=== PATIENT | female | born 1990 | race Caucasian/White ===

== ENCOUNTER 2020-06-29 14:13 | Outpatient (CLI) | payer OTHER ==
[2020-06-29 18:20] LABS: BASOPHILS # (AUTO) 0.1 10^3/uL (0.0-0.1); BASOPHILS % (AUTO) 0.9 %; EOSINOPHILS # (AUTO) 0.2 10^3/uL (0.0-0.7); EOSINOPHILS % (AUTO) 2.3 %; HGB - HEMOGLOBIN 12.9 g/dL (12.0-16.0); LYMPHOCYTES # (AUTO) 3.1 10^3/uL (1.5-3.5); LYMPHOCYTES % (AUTO) 32.6 %; MEAN CORPUSCULAR HEMOGLOBIN 28.5 pg (27.0-31.0); MEAN CORPUSCULAR HGB CONC 32.4 g/dL (32.0-36.0); MEAN CORPUSCULAR VOLUME 87.9 fL (81.0-99.0); MEAN PLATELET VOLUME 10.5 fL (7.9-10.8); MONOCYTES # (AUTO) 0.7 10^3/uL (0.0-1.0); MONOCYTES % (AUTO) 7.4 %; NEUTROPHILS # (AUTO) 5.3 10^3/uL (1.5-6.6); NEUTROPHILS % (AUTO) 56.4 %; PLT - PLATELET COUNT 281 10^3/uL (130-450); RED BLOOD COUNT 4.53 10^6/uL (4.20-5.40); RED CELL DISTRIBUTION WIDTH 12.7 % (12.0-15.0); WHITE BLOOD COUNT 9.4 x10^3/uL (4.8-10.8)
[2020-06-29 18:42] LABS: ALBUMIN 4.5 g/dL (3.2-5.5); ALBUMIN/GLOBULIN RATIO 1.6 (1.0-2.2); BILIRUBIN,TOTAL 0.6 mg/dL (0.2-1.0); CALCIUM 8.9 mg/dL (8.5-10.3); CREATININE 0.8 mg/dL (0.4-1.0); TOTAL PROTEIN 7.4 g/dL (6.7-8.2)
== END 2020-06-29 23:59 | disposition home or self-care (01) ==
LOC: LAB.WCP 14:13
PROVIDERS: ATTEND Physician Assistant
DX: Z00.00 Encounter for general adult medical examination without abnormal findings (principal)
CPT/HCPCS: 36415; 80053; 83036; 84443; 85025

== ENCOUNTER 2020-11-18 10:50 | Outpatient (CLI) | payer OTHER ==
[2020-11-18 18:10] LABS: HGB - HEMOGLOBIN 12.7 g/dL (12.0-16.0); MEAN CORPUSCULAR HGB CONC 31.9 g/dL (32.0-36.0); MEAN CORPUSCULAR VOLUME 87.7 fL (81.0-99.0); MEAN PLATELET VOLUME 10.7 fL (7.9-10.8); RED BLOOD COUNT 4.54 10^6/uL (4.20-5.40); RED CELL DISTRIBUTION WIDTH 12.7 % (12.0-15.0); WHITE BLOOD COUNT 8.1 x10^3/uL (4.8-10.8)
[2020-11-18 18:36] LABS: ALBUMIN 4.6 g/dL (3.2-5.5); ALBUMIN/GLOBULIN RATIO 1.4 (1.0-2.2); BILIRUBIN,TOTAL 0.6 mg/dL (0.2-1.0); CALCIUM 9.5 mg/dL (8.5-10.3); CREATININE 0.9 mg/dL (0.4-1.0); TOTAL PROTEIN 7.8 g/dL (6.7-8.2)
[2020-11-18 18:46] LABS: THYROID STIMULATING HORMONE 1.86 uIU/mL (0.34-5.60)
[2020-11-18 18:48] LABS: FREE T4 (FREE THYROXINE) 1.02 ng/dL (0.58-1.64)
[2020-11-18 18:52] LABS: PROLACTIN 11.71 ng/mL
[2020-11-18 19:34] LABS: HEMOGLOBIN A1c% 5.1 % (4.27-6.07)
[2020-11-19 06:18] LABS: PROGESTERONE 0.7 ng/mL
== END 2020-11-18 23:59 | disposition home or self-care (01) ==
LOC: LAB.WCP 10:50
PROVIDERS: ATTEND Obstetrics & Gynecology
DX: Z00.00 Encounter for general adult medical examination without abnormal findings (principal); Z13.21 Encounter for screening for nutritional disorder; N97.0 Female infertility associated with anovulation; Z71.89 Other specified counseling
CPT/HCPCS: 36415; 80053; 81599; 82306; 83036; 83520; 84144; 84146; 84403; 84439; 84443; 85027; 86762; 86787

== ENCOUNTER 2020-12-18 18:50 | Outpatient (CLI) | payer OTHER ==
--- NOTE | 2020-12-19 08:45 | Ultrasound Report ---
PROCEDURE: Pelvic w/Transvaginal INDICATIONS: FEMALE INFERTILITY ASSOCIATED WITH ANOVULATION TECHNIQUE: Real-time scanning was performed of the pelvic organs, with image documentation. Additional endovagi nal scanning was necessary due to incomplete visualization of the adnexal and endometrial structures by transabdominal scanning. COMPARISON: None. FINDINGS: No pathologic free abdominal or pelvic fluid. Uterus: Uterus is normal in size at 3.3 x 4.7 x 7.8 cm. No uterine mass. The endometrium measures 7 mm in combined thickness. Ovaries: The right ovary measures 2.7 x 2.8 x 5.8 cm. No ovarian or adnexal mass on the right. The l eft ovary measures 2.2 x 3.9 x 5.2 cm. There is a minimally complicated cyst measuring 3 cm, likely a resolving hemorrhagic cyst. There is also a simple appearing left paraovarian cyst measuring 2 cm. IMPRESSION: Left paraovarian cyst measuring 2 cm which appears simple. Minimally complicated left ovarian cyst, likely a resolving hemorrhagic cyst. Reviewed by: Onesimo Xiong MD on 12/19/2020 8:44 AM PST Approved by: Onesimo Xiong MD on 12/19/2020 8:44 AM PST Station ID: [id number]
== END 2020-12-18 18:51 | disposition home or self-care (01) ==
LOC: DI 18:50
PROVIDERS: ATTEND Obstetrics & Gynecology
DX: Z00.00 Encounter for general adult medical examination without abnormal findings (principal); N97.0 Female infertility associated with anovulation; Z71.89 Other specified counseling; N83.202 Unspecified ovarian cyst, left side
CPT/HCPCS: 36415; 82670; 83001

== ENCOUNTER 2020-12-18 20:32 | Outpatient (CLI) | payer OTHER | END 2020-12-18 20:33 | disposition home or self-care (01) | LOC: LAB 20:32 | PROVIDERS: ATTEND Obstetrics & Gynecology | DX: N97.0 Female infertility associated with anovulation (principal); Z71.89 Other specified counseling; Z31.69 Encounter for other general counseling and advice on procreation; Z00.00 Encounter for general adult medical examination without abnormal findings | CPT/HCPCS: 36415; 82670; 83001 ==

== ENCOUNTER 2021-02-28 08:00 | Outpatient (CLI) | payer OTHER | END 2021-02-28 23:59 | disposition home or self-care (01) | LOC: LAB.WCP 08:00 | PROVIDERS: ATTEND Obstetrics & Gynecology | DX: E55.9 Vitamin D deficiency, unspecified (principal) | CPT/HCPCS: 36415; 82306 ==

== ENCOUNTER 2021-07-24 06:59 | Outpatient (CLI) | payer OTHER ==
--- NOTE | 2021-07-24 08:13 | MRI Report ---
PROCEDURE: Lumbar Spine W/O INDICATIONS: RIGHT LUMBAR RADICULOPATHY TECHNIQUE: Noncontrast sagittal T1 spin echo and T2 fast echo, sagittal STIR, axial T1 and T2 fast spin echo thr ough the lumbar spine. In cases with scoliosis, additional coronal T2 fast spin echo may be performe d. COMPARISON: None. FINDINGS: Image quality: Excellent. Alignment and Curvature: There is normal bony alignment. Bone Marrow: Marrow is of normal overall signal. No acute vertebral body compression fractures. Spinal Cord: Conus medullaris terminates at the L1-L2 level. Visualized cord demonstrates normal si gnal and size. Paraspinous Soft Tissues: No paravertebral masses. T12-L1: No canal stenosis or foraminal stenosis. L1-L2: No canal stenosis or foraminal stenosis. L2-L3: No canal stenosis or foraminal stenosis. L3-L4: Mild disc height loss and disc desiccation. Large broad-based central posterior disc protrusi on markedly impinges on the thecal sac, resulting in severe canal stenosis. Mild facet hypertrophy. N o significant foraminal stenosis. L4-L5: Moderately severe chronic disc height loss. Facet hypertrophy. Mild to moderate right forami nal narrowing. Mild left foraminal narrowing. L5-S1: Moderate chronic disc height loss. Posterior disc bulge. Facet hypertrophy. Mild to moderate canal stenosis. Mild to moderate bilateral foraminal stenosis with flattening deformity on the exiti ng bilateral L5 nerve roots. IMPRESSION: 1. At L3-L4, there is a large posterior disc protrusion markedly impinging on the thecal sac resultin g in severe canal stenosis. 2. At L5-S1, there is mild to moderate canal stenosis and mild to moderate bilateral foraminal stenos is. Reviewed by: Ravinedr Ballard MD on 07/24/2021 8:12 AM PDT Approved by: Ravinder Ballard MD on 07/24/2021 8:12 AM PDT Station ID: [id number]
== END 2021-07-24 07:00 | disposition home or self-care (01) ==
LOC: DI 06:59
PROVIDERS: ATTEND Registered Nurse
DX: M51.16 Intervertebral disc disorders with radiculopathy, lumbar region (principal); M48.061 Spinal stenosis, lumbar region without neurogenic claudication

== ENCOUNTER 2021-07-31 08:00 | Outpatient (CLI) | payer OTHER ==
[2021-07-31 12:21] LABS: BASOPHILS # (AUTO) 0.1 10^3/uL (0.0-0.1); BASOPHILS % (AUTO) 0.6 %; EOSINOPHILS # (AUTO) 0.2 10^3/uL (0.0-0.7); HCT - HEMATOCRIT 41.2 % (37.0-47.0); LYMPHOCYTES # (AUTO) 2.7 10^3/uL (1.5-3.5); LYMPHOCYTES % (AUTO) 24.7 %; MEAN CORPUSCULAR HEMOGLOBIN 27.2 pg (27.0-31.0); MEAN CORPUSCULAR HGB CONC 31.6 g/dL (32.0-36.0); MEAN CORPUSCULAR VOLUME 86.2 fL (81.0-99.0); MEAN PLATELET VOLUME 10.1 fL (7.9-10.8); MONOCYTES # (AUTO) 0.9 10^3/uL (0.0-1.0); MONOCYTES % (AUTO) 7.8 %; NEUTROPHILS % (AUTO) 64.5 %; PLT - PLATELET COUNT 278 10^3/uL (130-450); RED BLOOD COUNT 4.78 10^6/uL (4.20-5.40); RED CELL DISTRIBUTION WIDTH 12.4 % (12.0-15.0); WHITE BLOOD COUNT 10.8 x10^3/uL (4.8-10.8)
[2021-07-31 12:32] LABS: BILIRUBIN,URINE NEGATIVE (NEGATIVE); GLUCOSE, URINE (UA) NEGATIVE (NEGATIVE); KETONES,URINE (UA) NEGATIVE (NEGATIVE); LEUKOCYTE ESTERASE, URINE NEGATIVE (NEGATIVE); NITRITE,URINE NEGATIVE (NEGATIVE); OCCULT BLOOD,URINE NEGATIVE (NEGATIVE); PROTEIN,URINE NEGATIVE (NEGATIVE); UROBILINOGEN,URINE 0.2 (NORMAL) E.U./dL (NORMAL)
[2021-07-31 12:39] LABS: BACTERIA,URINE None Seen /HPF (None Seen); CLARITY,URINE CLEAR (CLEAR); RBC,URINE 0-5 /HPF (0-5); SQUAMOUS EPITHELIAL CELL,UR RARE Squamous (<= Few); WBC,URINE 0-3 /HPF (0-5)
[2021-07-31 13:34] LABS: ALBUMIN 4.2 g/dL (3.2-5.5); ALBUMIN/GLOBULIN RATIO 1.5 (1.0-2.2); ALKALINE PHOSPHATASE 63 IU/L (42-121); ALT ALANINE AMINOTRANSFERASE 18 IU/L (10-60); AST ASPARTATE AMINOTRANSFERASE 22 IU/L (10-42); BILIRUBIN,TOTAL 0.7 mg/dL (0.2-1.0); BUN - BLOOD UREA NITROGEN 11 mg/dL (6-20); CALCIUM 9.3 mg/dL (8.5-10.3); CARBON DIOXIDE - CO2 25 mmol/L (21-32); CHLORIDE 108 mmol/L (101-111); CHOL/HDL RATIO 3.3 (<4.4); CHOLESTEROL 166 mg/dL; CREATININE 0.8 mg/dL (0.4-1.0); GFR - MDRD 85 (>89); GLUCOSE 91 mg/dL (70-100); HDL CHOLESTEROL 51 mg/dL; LDL CHOLESTEROL,CALCULATED 103 mg/dL; POTASSIUM 4.1 mmol/L (3.5-5.0); SODIUM 140 mmol/L (135-145); TRIGLYCERIDES 58 mg/dL; VLDL CHOLESTEROL 12 mg/dL
[2021-07-31 13:50] LABS: THYROID STIMULATING HORMONE 1.31 uIU/mL (0.34-5.60)
[2021-07-31 14:03] LABS: ESTIMATED AVERAGE GLUCOSE 103 mg/dL (70-100); HEMOGLOBIN A1c% 5.2 % (4.27-6.07)
== END 2021-07-31 23:59 | disposition home or self-care (01) ==
LOC: LAB.WCP 08:00
PROVIDERS: ATTEND Nurse Practitioner
DX: R53.83 Other fatigue (principal); Z13.220 Encounter for screening for lipoid disorders
CPT/HCPCS: 36415; 80053; 80061; 81001; 82607; 83036; 83721; 84443; 85025; 87086

== ENCOUNTER 2022-11-21 08:34 | Outpatient (CLI) | payer OTHER ==
[2022-11-21 11:54] LABS: BASOPHILS % (AUTO) 0.8 %; EOSINOPHILS # (AUTO) 0.1 10^3/uL (0.0-0.7); EOSINOPHILS % (AUTO) 1.5 %; HCT - HEMATOCRIT 43.3 % (37.0-47.0); HGB - HEMOGLOBIN 13.8 g/dL (12.0-16.0); LYMPHOCYTES # (AUTO) 1.8 10^3/uL (1.5-3.5); LYMPHOCYTES % (AUTO) 34.3 %; MEAN CORPUSCULAR HEMOGLOBIN 27.2 pg (27.0-31.0); MEAN CORPUSCULAR HGB CONC 31.9 g/dL (32.0-36.0); MEAN CORPUSCULAR VOLUME 85.2 fL (81.0-99.0); MEAN PLATELET VOLUME 10.1 fL (7.9-10.8); MONOCYTES # (AUTO) 0.9 10^3/uL (0.0-1.0); MONOCYTES % (AUTO) 17.3 %; NEUTROPHILS # (AUTO) 2.4 10^3/uL (1.5-6.6); NEUTROPHILS % (AUTO) 45.7 %; PLT - PLATELET COUNT 255 10^3/uL (130-450); RED BLOOD COUNT 5.08 10^6/uL (4.20-5.40); RED CELL DISTRIBUTION WIDTH 12.9 % (12.0-15.0); WHITE BLOOD COUNT 5.3 x10^3/uL (4.8-10.8)
[2022-11-21 12:11] LABS: ALBUMIN 4.4 g/dL (3.2-5.5); ALBUMIN/GLOBULIN RATIO 1.2 (1.0-2.2); ALKALINE PHOSPHATASE 82 IU/L (42-121); ALT ALANINE AMINOTRANSFERASE 14 IU/L (10-60); AST ASPARTATE AMINOTRANSFERASE 20 IU/L (10-42); BILIRUBIN,TOTAL 0.4 mg/dL (0.2-1.0); BUN - BLOOD UREA NITROGEN 14 mg/dL (6-20); CALCIUM 9.2 mg/dL (8.5-10.3); CARBON DIOXIDE - CO2 26 mmol/L (21-32); CHLORIDE 104 mmol/L (101-111); CHOL/HDL RATIO 3.4 (<4.4); CHOLESTEROL 149 mg/dL; CREATININE 1.2 mg/dL (0.4-1.0); GFR - MDRD 53 (>89); GLUCOSE 92 mg/dL (70-100); HDL CHOLESTEROL 44 mg/dL; LDL CHOLESTEROL,CALCULATED 90 mg/dL; POTASSIUM 3.8 mmol/L (3.5-5.0); SODIUM 139 mmol/L (135-145); TOTAL PROTEIN 8.1 g/dL (6.7-8.2); TRIGLYCERIDES 76 mg/dL; VLDL CHOLESTEROL 15 mg/dL
[2022-11-21 13:27] LABS: THYROID STIMULATING HORMONE 1.53 uIU/mL (0.34-5.60)
== END 2022-11-21 08:35 | disposition home or self-care (01) ==
LOC: LAB.N 08:34
PROVIDERS: ATTEND Nurse Practitioner
DX: G43.909 Migraine, unspecified, not intractable, without status migrainosus (principal); R53.83 Other fatigue; Z13.220 Encounter for screening for lipoid disorders
CPT/HCPCS: 36415; 80053; 80061; 82607; 83721; 84443; 85025

== ENCOUNTER 2022-12-06 10:39 | Outpatient (CLI) | payer OTHER ==
--- NOTE | 2022-12-06 17:27 | Ultrasound Report ---
PROCEDURE: Abdomen Limited INDICATIONS: NAUSEA TECHNIQUE: Real-time scanning was performed of the abdominal and retroperitoneal organs, with image documentatio n. COMPARISON: None. FINDINGS: Liver: Liver is normal in size and increased in echotexture. Gallbladder: No stones are present. Wall thickness is normal measuring 1.8 mm. Biliary ducts: Intrahepatic bile ducts are non-dilated. Extrahepatic bile duct caliber measures 2.6 mm. Normal is 6-7 mm or less in diameter, or 10 mm or less post-cholecystectomy. Pancreas: Visualized portions of the pancreas are sonographically normal. Kidneys: Right kidney measures 10.0 cm long. No hydronephrosis or nephrolithiasis. No solid masses . Aorta: Visualized aorta is normal in caliber at less than 3 cm. Iliacs: Proximal common iliac arteries are normal in caliber at less than 2.5 cm. IVC: Intrahepatic inferior vena cava is patent. Miscellaneous: No free abdominal fluid. IMPRESSION: Mild hepatic steatosis. Reviewed by: Herlinda Osuna MD on 12/06/2022 4:55 PM PST Approved by: Herlinda Osuna MD on 12/06/2022 4:55 PM PST Station ID: [id number]
== END 2022-12-06 10:40 | disposition home or self-care (01) ==
LOC: DI 10:39
PROVIDERS: ATTEND Physician Assistant
DX: R11.0 Nausea (principal); K76.0 Fatty (change of) liver, not elsewhere classified

== ENCOUNTER 2023-06-14 07:44 | Emergency (ER) | payer OTHER ==
[2023-06-14 07:58] VITALS: BP 138/90; O2SAT 98
--- NOTE | 2023-06-14 08:20 | ED Physician Documentation ---
PD HPI BACK PAIN - Stated complaint Stated Complaint: LRQ BACK PX, NAUSEA - Chief complaint Chief Complaint: Back Pain - History obtained from History obtained from: Patient - History of Present Illness Timing - onset: How many days ago (1-2) Timing - duration: Days (1-2) Timing - details: Gradual onset, Still present Location: Lower, Right Quality: Pain, Spasm Worsened by: Movement Contributing factors: Twisting. No: Lifting, Trauma Similar symptoms before: Diagnosis (chronic back pain since age 15 due to fall off balance beam in gymnastics with herniated discs. She states gets exacerbations with minimal injury intermittently, about 1-2 times per year.) Recently seen: Not recently seen Review of Systems Constitutional: denies: Fever, Chills, Myalgias Cardiac: denies: Chest pain / pressure Respiratory: denies: Dyspnea GI: denies: Abdominal Pain, Nausea, Vomiting, Diarrhea : denies: Incontinent Skin: denies: Rash, Lesions Musculoskeletal: reports: Back pain Neurologic: reports: Numbness (intermittently down right leg to lateral foot.). denies: Focal weakness PD PAST MEDICAL HISTORY - Past Medical History Musculoskeletal: Chronic back pain (since age 15 from disc injuries from fall during gymnastics. ) - Present Medications Home Medications: Ambulatory Orders Medication Instructions Recorded Confirmed Meloxicam [Mobic] 7.5 mg PO BID 10 Days #20 tablet 06/14/23 dexAMETHasone [Decadron] 4 mg PO DAILY #5 tablet 06/14/23 oxyCODONE [Roxicodone] 5 mg PO Q6H PRN #15 tablet 06/14/23 tiZANidine [Zanaflex] 4 mg PO Q8H PRN #20 tablet 06/14/23 - Allergies Allergies/Adverse Reactions: Allergies Allergy/AdvReac Type Severity Reaction Status Date / Time No Known Drug Allergies Allergy Verified 06/14/23 07:57 PD ED PE NORMAL - Vitals Vital signs reviewed: Yes - General General: Alert and oriented X 3, Well developed/nourished, Other (seems uncomfortable with guarded ROM of the lower back, mainly right side. ) - Abdomen Abdomen: Soft, Non tender - Back Back: No CVA TTP, No spinal TTP (tender in right lateral paraspinous muscles. No redness, rash nor sores. ) - Derm Derm: Normal color, Warm and dry, No rash - Neuro Neuro: Alert and oriented X 3, No motor deficit, No sensory deficit, Other (normal patellar reflexes. ) Results - Vitals Vitals: Vital Signs - 24 hr 06/14/23 07:52 Temperature 37.2 C Heart Rate 79 Respiratory 18 Rate Blood Pressure 138/90 H O2 Saturation 98 Oxygen O2 Source Room air - Labs Labs: Laboratory Tests 06/14/23 08:49 Urine Color YELLOW Urine Clarity CLEAR Urine pH 6.5 Ur Specific Ulysses 1.010 Urine Protein NEGATIVE Urine Glucose (UA) NEGATIVE Urine Ketones NEGATIVE Urine Occult Blood NEGATIVE Urine Nitrite NEGATIVE Urine Bilirubin NEGATIVE Urine Urobilinogen 0.2 (NORMAL) Ur Leukocyte Esterase NEGATIVE Ur Microscopic Review NOT INDICATED Urine Culture Comments NOT INDICATED PD Medical Decision Making - ED course Complexity details: reviewed results (urine without infection nor blood.), considered differential (lower back pain without new injury. exac of prior back process. No red flags. ), d/w patient Departure - Departure Disposition: 01 Home, Self Care Clinical Impression: Acute exacerbation of chronic low back pain Condition: Stable Record reviewed to determine appropriate education?: Yes Instructions: ED Sciatica Follow-Up: Viki Nick ARNP [Primary Care Provider] - Prescriptions: dexAMETHasone [Decadron] 4 mg PO DAILY #5 tablet Meloxicam [Mobic] 7.5 mg PO BID 10 Days #20 tablet oxyCODONE [Roxicodone] 5 mg PO Q6H PRN #15 tablet PRN Reason: Pain tiZANidine [Zanaflex] 4 mg PO Q8H PRN #20 tablet PRN Reason: Spasms Comments: Your urine is clear without any signs of blood or infection. This does sound like the muscular and nerve irritation type of pain. Is not unusual at all for ongoing back pain to have exacerbations periodically. We can treat this with anti-inflammatories combined with muscle relaxant heat stretching topical treatments and adding Tylenol or pain medicine as needed. You said steroids have been helpful in the past. We can go with oral steroid dexamethasone daily for the next 5 days. After that change to meloxicam nonsteroidal anti-inflammatory with food for an additional 7 to 10 days. He stretching and exercises are good. Physical modalities such as chiropractic massage and physical therapy could be good as well. Tizanidine muscle relaxant for spasms and stiffness as directed. Add Tylenol 650 mg 4 times daily for the next several days to week as well to help with pain. To that add oxycodone every 6 hours if needed for worse pain. This would be intended short-term. Follow-up with your primary care if not improving well over the next several days to week. Also follow-up with your primary care regarding the ongoing longer-term back pain. Consideration could be for back/nerve type pains of the lower dose gabapentin/Neurontin initially. Other medications used for chronic back pain are some of the antidepressants such as duloxetine which has been shown to help with chronic pain as well. Discussed these with your primary care. I sent your prescription to your preferred pharmacy, [facility]. I am prescribing a short course of narcotic pain medication for you. These are potentially dangerous and addictive medications that should be used carefully. These medications may constipate you. Take an [id number]-[id number] stool softener such as docusate twice daily with plenty of water while taking these medications. If you go 24 hours without a bowel movement, take [id number] MiraLAX, per package instructions. Do not drink or drive while taking these medications. If you received narcotic or sedating medications while in the emergency department do not drive for 24 hours. Store this medication in a safe, secure place and out of reach of children. It is a violation of federal law to give or sell this medication to another person or to use in a manner other than prescribed. The ED will not refill narcotic prescriptions, including prescriptions lost or stolen. You can dispose of unwanted medications at the [facility] office or at several pharmacies such as the [facility]. Discharge Date/Time: 06/14/23 10:26
[2023-06-14] MEDS ORDERED: dexAMETHasone 4 MG TABLET PO STA (08:51)
[2023-06-14] MEDS ORDERED: NAPROXEN 250 MG TABLET PO STA (08:51)
[2023-06-14] MEDS ORDERED: oxyCODONE 5 MG TABLET PO STA (08:51)
[2023-06-14] MEDS ORDERED: tiZANidine 4 MG TABLET PO STA (08:51)
[2023-06-14 09:10] LABS: BILIRUBIN,URINE NEGATIVE (NEGATIVE); GLUCOSE, URINE (UA) NEGATIVE (NEGATIVE); KETONES,URINE (UA) NEGATIVE (NEGATIVE); LEUKOCYTE ESTERASE, URINE NEGATIVE (NEGATIVE); NITRITE,URINE NEGATIVE (NEGATIVE); OCCULT BLOOD,URINE NEGATIVE (NEGATIVE); PH,URINE 6.5 PH (5.0-7.5); PROTEIN,URINE NEGATIVE (NEGATIVE); UROBILINOGEN,URINE 0.2 (NORMAL) E.U./dL (NORMAL)
[2023-06-14 09:12] LABS: CLARITY,URINE CLEAR (CLEAR)
== END 2023-06-14 10:26 | disposition home or self-care (01) ==
LOC: ED 07:44
DX: M54.50 Low back pain, unspecified (principal); G89.29 Other chronic pain
CPT/HCPCS: 81003; 99283; 99284; A9270; J8540; 81001; 87086